=== PATIENT | male | born 1950 ===

== ENCOUNTER 2019-01-03 03:16 | Observation (INO) | payer OTHER ==
[2019-01-03] MEDS ORDERED: ONDANSETRON DISINTEGRATING 4 MG TAB PO PRN (03:34)
[2019-01-03] MEDS ORDERED: HYDROmorphONE/DILAUDID 1 MG/ML INJ IVP PRN (03:34)
[2019-01-03] MEDS ORDERED: ACETAMINOPHEN 325 MG TAB PO PRN (03:34)
[2019-01-03] MEDS ORDERED: ONDANSETRON 4 MG/2 ML VIAL IVP PRN (03:34)
--- NOTE | 2019-01-03 03:51 | PDGENHP ---
History and Physical - Chief Complaint R flank pain - History of Present Illness 68 yo M w/ hx of HTN and HLD presents w/ R flank pain. The patient was in [place] last week when he developed severe R flank pain. He was seen at an ED there and diagnosed with an obstructing UVJ stone. He was treated as an outpatient with moderate success. He flew to [place] today after taking pain medication. Today his pain returned so he went to a [facility] ED for evaluation. A CT scan there revealed similar findings to before: 4 mm stone @ UVJ with hydronephrosis and forniceal rupture. He requested admission at [facility] for further management. During my evaluation he is comfortable after Tylenol. He denies infectious symptoms. Work-up at [facility] ED notable for creatinine of 1.7, normal UA, and 0/4 SIRS criteria noted. Case disussed with ED physician Yayo; records reviewed and summarized above. History Information - Allergies/Home Medication List Allergies/Adverse Reactions: No Known Allergies Allergy (Unverified 01/03/19 03:33) I have personally reviewed and updated: family history, medical history - Past Medical History hypertension, hyperlipidemia - Surgical History Additional surgical history: Surgery for throat cancer - Family History Positive for: cancer, stroke Review of Systems Review of Systems: ROS: 10pt was reviewed & negative except for what was stated in HPI & below Physical Exam Physical Exam: Constitutional: appears nourished, uncomfortable Eyes: PERRL, EOMI Ears, Nose, Mouth, Throat: moist mucous membranes, no oral mucosal ulcers Cardiovascular: regular rate and rhythym, no murmur, rub, or gallop Respiratory: no respiratory distress, no rales or rhonchi Gastrointestinal: normoactive bowel sounds, tenderness (RLQ), No guarding, No rebound, No distension Skin: warm, normal color Musculoskeletal: full muscle strength, no muscle tenderness Neurologic: AAOx3, CN II-XII Intact Psychiatric: interacting appropriately, not anxious Assessment & Plan Assessment: 68 yo M w/ hx of HTN and HLD presents with urolithiasis. Plan: 1. R urolithiasis - 4 mm stone at UVJ with persistent symptoms for 4 days despite aggressive outpatient hydration and pain control. He denies infectious symptoms and had 0/4 SIRS criteria noted at outside ER. CT at outside ER noted mild hydronephrosis and forniceal rupture. - Admit for observation - Aggressive hydration - Tamsulosin daily - Pain control - Noting size of stone, will likely pass with hydration; if not, may require urology consult 2. KERRY - Creatinine 1.7 at OSH with unknown baseline. This is likely due to high dose NSAIDs and hydronephrosis. - Continue IVF - Avoid nephrotoxic agents - Monitor BMP 3. HTN - Continue home medications pending reconciliation 4. HLD - Continue statin Diet - Regular Code - Full Ppx - SCDs Dispo - Admit under observation status
[2019-01-03] MEDS: NS 1,000 ML IV SCH ×3 (04:40→18:10)
[2019-01-03 04:41] LABS: PLATELET COUNT 165 10^3/uL (150-400)
[2019-01-03] MEDS: oxyCODONE IR 5 MG TAB PO PRN ×3 (04:44→15:35)
[2019-01-03] MEDS: TAMSULOSIN HCL 0.4 MG CAP PO SCH (09:20)
[2019-01-03] MEDS ORDERED: ALBUTEROL 60 PUFFS/8 GM MDI IH PRN (12:40)
--- NOTE | 2019-01-03 12:44 | HOSPPROG ---
Hospitalist Progress Note Assessment/Plan: 60-year-old with history of hypertension and hyperlipidemia presents with right flank pain. He was in [place] last week when he developed severe right flank pain and seen at the emergency department there and diagnosed with an obstructing right UVJ stone. He was treated as an outpatient however his pain has not improved. He flew to [place] yesterday after taking some pain medication and when his pain worsened after arrival here he presented to an urgent care, he had a CT scan there which revealed a 4 mm stone at the UVJ with hydronephrosis his creatinine was elevated at 1.7 so he was transferred here for inpatient evaluation. # right UVJ stone, small should pass on its own but has not in several days. Discussed with Urology who will see patient in consultation. Obtain labs from Urgent Care and downloaded to our system. * Continue IV fluids * Continue Flomax * Continue pain control # hypothyroidism on replacement, resume medication # hypertensive on medication, will resume tomorrow normotensive today # dyslipidemia on Crestor Subjective: Patient new to me and chart reviewed. Continues to complain of fairly significant right flank pain. Objective: Vital Signs Temp Pulse Resp BP Pulse Ox 36.9 C 78 18 132/77 H 91 L 01/03/19 07:39 01/03/19 07:39 01/03/19 07:39 01/03/19 07:39 01/03/19 07:39 Laboratory Results 01/03/19 03:30 01/03/19 03:30 01/02/19 01/03/19 01/04/19 05:59 05:59 05:59 Intake Total 0 Output Total 250 Balance 0 -250 - Physical Exam Constitutional: uncomfortable Eyes: PERRL, EOMI Ears, Nose, Mouth, Throat: moist mucous membranes Cardiovascular: regular rate and rhythym Respiratory: no respiratory distress, clear to auscultation Gastrointestinal: tenderness (Right side with guarding) Genitourinary: no bladder fullness Skin: normal color Musculoskeletal: full muscle strength Neurologic: AAOx3 Psychiatric: interacting appropriately ICD10 Worksheet Patient Problems: Problems Problem Status Onset Kidney stone on right side Acute - ICD10 Problem Qualifiers (1) Kidney stone on right side
--- NOTE | 2019-01-03 14:28 | ASMTCMCOM ---
CM Note CM Note Notes: Patient plan of care reviewed in am rounds. Nathan De Leon from [facility] to see as patient admitted with kidney stones. CM to follow for needs, Likely to dc independent when medically cleared for discharge, Plan: TBD Date Signed: 01/03/2019 12:55 PM Electronically Signed By:Fela Babb RN
[2019-01-03] MEDS: LEVOTHYROXINE 25 MCG TAB PO SCH (18:36)
[2019-01-03] MEDS: ROSUVASTATIN CALCIUM 10 MG TAB PO SCH (18:37)
--- NOTE | 2019-01-03 20:07 | SOAPPROG ---
ANAYA Progress Note Assessment/Plan: Assessment: Symptomatic 2 mm right UVJ stone. Plan: 1. Continue medical mgmt. today. 2. Intraoperative ureteroscopy in AM if he does not pass the stone in the meantime. (consult # [id number]) Objective: Vital Signs Temp Pulse Resp BP Pulse Ox 36.8 C 89 16 166/99 H 89 L 01/03/19 19:19 01/03/19 19:19 01/03/19 19:19 01/03/19 19:19 01/03/19 19:19 Laboratory Results 01/03/19 03:30 01/03/19 03:30 01/02/19 01/03/19 01/04/19 05:59 05:59 05:59 Intake Total 0 1500 Output Total 250 Balance 0 1250 ICD10 Worksheet Patient Problems: Problems Problem Status Onset Kidney stone on right side Acute
[2019-01-04] MEDS: LEVOTHYROXINE 25 MCG TAB PO SCH (05:34)
[2019-01-04] MEDS ORDERED: LR 1,000 ML IV ONE (05:38)
[2019-01-04] MEDS ORDERED: ceFAZolin 2 GM/DEXTROSE 100 ML IV ONE (07:30)
--- NOTE | 2019-01-04 08:23 | SOAPPROG ---
ANAYA Progress Note Assessment/Plan: Assessment: Symptomatic 2 mm right UVJ stone: spontaneously passed. Plan: Surgery has been cancelled. Pt. may be discharged whenever deemed appropriate by hospitalist service. Subjective: Per pt. request, repeat CT scan was performed this AM which revealed spontaneous passage of right UVJ stone. Objective: Vital Signs Temp Pulse Resp BP Pulse Ox 36.6 C 80 18 168/94 H 91 L 01/04/19 07:25 01/04/19 07:25 01/04/19 07:25 01/04/19 07:25 01/04/19 07:25 Laboratory Results 01/03/19 03:30 01/03/19 03:30 01/03/19 01/04/19 01/05/19 05:59 05:59 05:59 Intake Total 0 3120 Output Total 1300 250 Balance 0 1820 -250 ICD10 Worksheet Patient Problems: Problems Problem Status Onset Kidney stone on right side Acute
--- NOTE | 2019-01-04 08:40 | GCON ---
[f rep st] CONSULTATION UROLOGY CONSULTATION NOTE DATE OF CONSULTATION: 01/03/2019 REQUESTING PHYSICIAN: Hospitalist Service REASON FOR CONSULTATION: Symptomatic right ureteral calculus. HISTORY: This is a 68-year-old gentleman who started experiencing severe right- sided flank pain last for which he was seen in an emergency room in [place]. He was found to have on CT scan a distal right ureteral calculus ( records unavailable). The patient was then started on conservative management, but has continued to have intermittent pain. He then traveled to [place] and underwent another CT scan at a center or urgent care clinic earlier this morning that revealed persistence of a distal right ureteral calculus. The patient presented to the emergency room as a result due to intractable pain. The patient also has experienced some nausea and intermittent emesis, but denies fevers nor flu-like symptoms. He also denies any prior history of nephrolithiasis. PAST MEDICAL HISTORY: Notable for high blood pressure and high cholesterol. PAST SURGICAL HISTORY: Throat surgery. ADMISSION MEDICATIONS: Include Diovan, HCTZ 320/25 mg daily, Crestor 10 mg daily, Synthroid 25 mcg daily, albuterol MDI 1-2 puffs q.4 hours p.r.n. MEDICAL ALLERGIES: None known. FAMILY HISTORY: Not contributory. Specifically, no kidney stones to his knowledge. SOCIAL HISTORY: The patient is and lives in the [place] area. 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 He is here for the next week while he arranges his upcoming summer schedule. He denies use of tobacco products. REVIEW OF SYSTEMS: Unremarkable, other than mentioned above in the HPI and past medical history. PHYSICAL EXAM: GENERAL: Well-developed, well-nourished white male lying supine in bed, in no acute distress presently. VITAL SIGNS: Blood pressure 160 /87, heart rate 88, respiratory rate 18, oxygen saturation 90% on room air, temperature 37.1 Celsius. Height 170 inches, weight 84 kg, BMI 29. HEENT: Normocephalic, atraumatic. NECK: Normal appearance. HEART: Regular rate. CHEST: Unlabored respiratory pattern. ABDOMEN: Soft without palpable masses. No obvious organomegaly. Mild right lower quadrant tenderness on deep palpation. VASCULAR: Normal femoral pulses bilaterally. NEUROLOGIC: He is alert and oriented. He answers all questions appropriately with normal mood and affect. LABORATORY: CBC today is unremarkable. Chemistry panel today is also unremarkable with creatinine 1.2 and calcium 8.2. RADIOGRAPHIC STUDIES: 01/03/[address] scan (outside study): Upon my review, notable for moderate right hydronephrosis and hydroureter down to a 1.5 x 1.5 x 2 to 3 mm long ureterovesical junction calculus. There is also a punctate solitary left upper pole renal calculus. IMPRESSION: 1. Symptomatic small distal right ureteral calculus. 2. Punctate solitary asymptomatic left nephrolithiasis. I reviewed the patient's clinical presentation with him as well as his most recent imaging. Management options were reviewed in detail as well and all questions answered. PLAN: 1. Continue medical management this evening with IV fluids. Patient has also already been started on Flomax. Nursing staff is presumably straining the patient's urine and no stone has been retrieved to this point. 2. We will proceed with intraoperative ureteroscopy and calculus management tomorrow morning if he does not spontaneously pass the calculus in the meantime. Thank you for this consultation. /[id number]/MODL MTDD
[2019-01-04] MEDS ORDERED: VALSARTAN 160 MG TAB PO SCH (09:00)
[2019-01-04] MEDS ORDERED: VALSARTAN/HCTZ 80-12.5MG TAB PO SCH (09:00)
[2019-01-04] MEDS: TAMSULOSIN HCL 0.4 MG CAP PO SCH (09:14)
[2019-01-04] MEDS: ROSUVASTATIN CALCIUM 10 MG TAB PO SCH (09:14)
--- NOTE | 2019-01-04 09:42 | ASMTLACE ---
LACE Length of stay for Answers: 1 day current admission Comorbidities - select Answers: Opioid dependence all that apply / Chronic pain Other Notes: HTN; HLD # of Emergency department Answers: 0 visits in the last 6 months Score: 6 Date Signed: 01/04/2019 09:41 AM Electronically Signed By:Fela Bbab RN
--- NOTE | 2019-01-04 10:25 | GDS ---
[f rep st] DISCHARGE SUMMARY DIAGNOSES: 1. Right-sided kidney stone, status post passed. 2. Hypertension. 3. Dyslipidemia. 4. Hypothyroidism. 5. Mild asthma. CONSULTATIONS: Freedom Evans MD. PROCEDURES DONE: CT scan showing passage of the stone. HOSPITAL COURSE: The patient is a 68-year-old with a history of hypertension and dyslipidemia, who c omes in with right flank pain. He was diagnosed with a right UVJ stone in [place] and was treated with hydration and pain control. 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 He was admitted to observation for pain control and hy dration. Urology was consulted since he continued to have pain and the plan was to take him to the O R this morning. However, prior to going to the OR, he passed the stone and is able to be discharged. CONDITION ON DISCHARGE: Good. DISCHARGE MEDICATIONS: Please see discharge medication form. FOLLOWUP: Followup will be as needed with his primary care provider. /[id number]/MODL
[2019-01-04 11:35] VITALS: BP 159/99
== END 2019-01-04 11:00 | disposition home or self-care (01) ==
LOC: F1N 03:16
PROVIDERS: ADMIT Student in an Organized Health Care Education/Training Program; ATTEND Internal Medicine
DX: N13.2 Hydronephrosis with renal and ureteral calculous obstruction (principal); N20.0 Calculus of kidney; N17.9 Acute kidney failure, unspecified; R93.2 Abnormal findings on diagnostic imaging of liver and biliary tract; I10 Essential (primary) hypertension; E78.5 Hyperlipidemia, unspecified; Z85.818 Personal history of malignant neoplasm of other sites of lip, oral cavity, and pharynx; E03.9 Hypothyroidism, unspecified
CPT/HCPCS: 74018; 74176; G0378; G0379